=== PATIENT | male | born 1960 | race African-American/Black ===

== ENCOUNTER 2019-06-01 05:24 | Day surgery (SDC) | payer OTHER ==
[~2019-06-01] VITALS: Ht 190.5 cm; Wt 133.8 kg
[2019-06-01] MEDS ORDERED: GLUCOPHAGE1000 MG PO (06:13)
[2019-06-01] MEDS ORDERED: GLIPIZIDE10 MG PO (06:14)
[2019-06-01] MEDS ORDERED: ZESTRIL20 MG PO (06:14)
[2019-06-01] MEDS ORDERED: RANITIDINE HCL150 M1 PO (06:14)
[2019-06-01] MEDS ORDERED: LOPRESSOR25 MG PO (06:15)
[2019-06-01] MEDS ORDERED: ASPIRIN81 MG PO (06:15)
[2019-06-01] MEDS ORDERED: PRAVACHOL20 MG PO (06:15)
[2019-06-01] MEDS ORDERED: NORVASC10 MG PO (06:16)
[2019-06-01] MEDS ORDERED: ZYRTEC10 MG PO (06:16)
[2019-06-01] MEDS ORDERED: COLACE100 MG PO (06:16)
[2019-06-01 06:21] LABS: HEMATOCRIT 38.8 % (42.0-54.0); HEMOGLOBIN 13.8 g/dL (13.5-17.5); MCH 28.6 pg (26.0-34.0); MCHC 35.6 g/dL (31.0-37.0); MCV 80.3 fL (80.0-100.0); RBC 4.83 10x6/uL (4.20-6.10); RDW 13.4 % (11.5-14.5)
[2019-06-01 06:22] VITALS: BP 152/93; Ht 190.5 cm; Wt 133.8 kg
--- NOTE | 2019-06-01 06:38 | NUR ---
PT SIGNED CONSENT FORMS AFTER I READ THE THEM TO HIM. 2 OTHER NURSES WERE PRESENT.
--- NOTE | 2019-06-01 06:39 | NUR ---
PT STATES UNDERSTANDING OF THE CONSENT FORMS BEFORE SIGNING.
--- NOTE | 2019-06-01 11:13 | NUR ---
VOIDED 150CC OF YELLOW URINE IN URINAL @1113
--- NOTE | 2019-06-01 11:43 | NUR ---
ANOTHER 100CC OF URINE IN URINAL @1132
--- NOTE | 2019-06-01 15:07 | NUR ---
1200 PT ARRIVED TO PHASE 2 FLAT AND ON RIGHT SIDE. ENCOURAGED PT TO MOVE UP TO STRETCHER AND SIT UP TO ALLOW THE GAS IN ABDOMEN TO RISE AND THAT WILL HELP WITH PAIN. PT REFUSED A FULL LIQ TRAY JUST WATER. 1230 MEDICATED FOR PAIN 5/10 PAIN, NO NAUSEA. RECIEVED SOME SALTINE CRACKERS AND TOLERATED WELL. URINATED IN BOTTLE X3 200-300ML AT A TIME. B/P IMPROVED. 1320 IV REMOVED AND PT RECIEVED INSTRUCTIONS. 1330 D/C HOME WITH LAW ENFORCEMENT
--- NOTE | 2019-06-23 16:24 | OP ---
PATIENT NAME: LOLLY BADILLO MEDICAL RECORD: [id number] :64 LOCATION:.[facility] ADMISSION DATE: SURGEON: LIVIER BENTLEY MD DATE OF OPERATION: 06/01/2019 PREOPERATIVE DIAGNOSIS: Symptomatic gallstones. POSTOPERATIVE DIAGNOSES: Symptomatic gallstones with hepatomegaly. PROCEDURES: 1. Laparoscopic cholecystectomy. 2. Intraoperative cholangiography without immediate surgeon interpretation. 3. A 14-gauge core needle liver biopsy. SURGEON: Livier Bentley MD LAUNCHMAN: None. BLOOD LOSS: Minimal. ANESTHESIA: General. COMPLICATIONS: None. The risks, possible complications, and alternatives to the procedure were explained to the patient. He elects to proceed. The discussion specifically included, but was not limited to, bleeding requiring emergency reoperation, infection, intestinal injury as well as common bile duct injury. The indication for the liver biopsy was hepatomegaly. OPERATIVE COURSE: The patient was conveyed to the operating room electively on 06/01/2019. General anesthesia was induced by the anesthesia staff. The abdomen was sterilely prepped and draped. A small skin incision was accomplished in the left upper quadrant. A Veress needle was inserted through the skin saulo into the peritoneal cavity. CO2 insufflation was begun. Once a sufficient pneumoperitoneum had been achieved, a 5-mm trocar was inserted through an incision in the right upper quadrant. Under direct internal vision utilizing a television camera, a 12-mm trocar was inserted through an incision at the umbilicus. Another 5-mm trocar was inserted through the incision in the left upper quadrant. Another 5-mm trocar was inserted through an incision in the right upper quadrant, far laterally. During insertion of the Veress needle and all trocars, there appeared to have been no injury to the bowels, any intraperitoneal or retroperitoneal structures. Abdominal survey was undertaken. Under laparoscopic guidance, I percutaneously accessed the right upper quadrant utilizing a 14-gauge core needle liver biopsy device. Cores were obtained over the convexity of the liver. The biopsy sites were made hemostatic with electrocautery. I then grasped the gallbladder. I advanced a cholangiogram trocar. I punctured the fundus of the gallbladder. I aspirated bile. I then injected dye. Under fluoroscopy, static cholangiographic images were obtained. These were sent to the radiologist for interpretation. I then aspirated bile and removed the cholangiogram trocar. OPERATIVE REPORT [id number] JUSTINO,LOLLY The gallbladder was grasped and retracted cephalad. The infundibulum was grasped and retracted laterally. Blunt dissection was begun in the triangle of Calot. One cystic artery and one cystic duct were identified. These were clipped multiply and divided between clips. The gallbladder was then excised from its bed in the liver. It was placed within a bag retrieval device and was withdrawn through the umbilical fascia defect. The 12-mm trocar was replaced and the abdomen reinsufflated. I irrigated and aspirated in the right upper quadrant. There was no bleeding even at a low pressure of 8. The 12-mm trocar was removed. Utilizing the Arben-Urvashi suture closure device and 0 Vicryl sutures, the fascia at the umbilicus was closed. All the trocars were removed and the abdomen desufflated. The skin at the umbilicus was closed with interrupted 4-0 Vicryl Rapide sutures. The other skin incisions were closed with interrupted intracuticular 4-0 Vicryls. Benzoin and Steri-Strips were applied. The patient was then extubated and conveyed to the post-anesthesia care unit where he was in stable condition. I did dismiss back to the [facility]. There is no need for him to follow up with me in the office unless he develops a complication related to this operative procedure. 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
== END 2019-06-01 13:30 | disposition home or self-care (01) ==
LOC: D.OPS 05:24
PROVIDERS: Anesthesiology; ATTEND Surgery
DX: K80.10 Calculus of gallbladder with chronic cholecystitis without obstruction (principal); K76.0 Fatty (change of) liver, not elsewhere classified; Z01.812 Encounter for preprocedural laboratory examination